=== PATIENT | male | born 1950 | race Caucasian/White ===

== ENCOUNTER 2021-10-27 10:23 | Outpatient (CLI) | payer OTHER | END 2021-10-27 11:19 | disposition home or self-care (01) | LOC: EKG 10:23 → LAB 10:23 | PROVIDERS: ATTEND Ophthalmology | DX: Z01.818 Encounter for other preprocedural examination (principal); H25.011 Cortical age-related cataract, right eye; Z98.41 Cataract extraction status, right eye ==